=== PATIENT | male | born 1975 | race Caucasian/White ===

== ENCOUNTER 2023-08-19 10:22 | Emergency (ER) | payer BC, SELFPAY ==
[2023-08-19 10:37] VITALS: BP 152/93; PULSE 73; RESP 16; TEMP 36.7; O2SAT 98
--- NOTE | 2023-08-19 10:51 | ED.URI ---
HPI - URI/Sore Throat General Chief Complaint: Upper Respiratory Infection Stated Complaint: Cough Time Seen by Provider: 08/19/23 10:51 Source: patient Mode of arrival: ambulatory Limitations: no limitations History of Present Illness HPI Narrative: 48-year-old male presented for complaint of frequent dry nonproductive cough for 3 weeks. He states about 2 weeks ago he received prednisone and Tessalon Perles throught telehealth doc with minimal relief. Endorses a cough is improving but still lingers. He denies associated shortness of breath, wheezing, nausea, vomiting, diarrhea, fatigue, fevers or chills. Has taken Mucinex and cough syrup without relief. Related Data Allergies Allergy/AdvReac Type Severity Reaction Status Date / Time No Known Allergies Allergy Verified 08/19/23 10:43 Review of Systems Review of Systems: CONSTITUTIONAL: Denies body aches, fever, chills, or sweats. EYES: Denies visual changes, redness, or discharge. ENT: Denies rhinorrhea, congestion, sore throat, or otalgia. CARDIOVASCULAR: Denies chest pain, palpitations, or edema. RESPIRATORY: Reports cough, denies sob, wheezing. GASTROINTESTINAL: Denies abdominal pain, nausea, vomiting, or diarrhea. GENITOURINARY: Denies dysuria or hematuria. SKIN: Denies rash, itching, or wounds. MUSCULOSKELETAL: Denies back pain, joint pain, or myalgia. NEUROLOGIC: Denies headache, numbness, tingling, or weakness. All systems reviewed & are unremarkable except as noted in HPI and below [facility] Past Medical History Medical History (Updated 08/19/23 @ 11:00 by Otilia Farfan, TAMIKA) No pertinent past medical history Comments At time of signature, I have reviewed and agree with nursing past medical, surgical, social and family history unless otherwise noted. Please see nursing chart for further information. There is no relevant family history pertinent to the presenting complaint Exam Narrative: GENERAL: Well-appearing, in no acute distress. EYES: EOMI. No redness or drainage. Conjunctivae normal. ENT: Mucous membranes pink and moist. No rhinorrhea. TMs normal bilaterally. Throat normal. Uvula midline. NECK: Normal AROM. Supple. CHEST: No respiratory distress. lungs clear to all solares. HEART: Regular rate and rhythm. No murmur appreciated. ABDOMEN: Soft, nontender, nondistended, normal active bowel sounds. EXTREMITIES: Normal range of motion. No edema. SKIN: Warm, dry, no rash. Capillary refill normal. Normal skin turgor. NEURO: Alert and oriented x3. Gait steady. PSYCH: Normal affect. Course Course Emergency Course: Patient is aware of diagnosis, understands and agrees to treatment plan. Anticipatory guidance given. Patient agrees to follow-up as directed and is aware of reasons to seek care at the emergency department. Portions of this record may have been created with voice recognition software Level of Care: Express Care Visit Vital Signs Vital signs: Vital Signs Temperature 98.0 F 08/19/23 10:37 Pulse Rate 73 08/19/23 10:37 Respiratory Rate 16 08/19/23 10:37 Blood Pressure 152/93 H 08/19/23 10:37 Pulse Oximetry 98 08/19/23 10:37 Oxygen Delivery Room Air 08/19/23 10:37 Temperature 98.0 F 08/19/23 10:37 Pulse Rate 73 08/19/23 10:37 Respiratory Rate 16 08/19/23 10:37 Blood Pressure 152/93 H 08/19/23 10:37 Pulse Oximetry 98 08/19/23 10:37 Oxygen Delivery Room Air 08/19/23 10:37 MDM - URI/Sore Throat MDM Narrative Medical decision making narrative: Discussed physical exam findings. Advised supportive measures and signs/symptoms to go to the ER. Pt is appropriate for outpt treatment and f/u. Differential Diagnosis Differential diagnosis: Likely upper respiratory infection, sinusitis, viral infection and bronchitis Discharge Plan Discharge Clinical Impression: Bronchitis Patient Disposition: Home, Self-Care Condition: Stable Instructions: Antibiotic Form, A
== END 2023-08-19 11:09 | disposition home or self-care (01) ==
PROVIDERS: Emergency Provider Nurse Practitioner Family
DX: J40 Bronchitis, not specified as acute or chronic (principal)
CPT/HCPCS: 99213; G0463